=== PATIENT | female | born 1980 | race Caucasian/White ===

== ENCOUNTER 2016-08-13 07:54 | Emergency (ER) | payer OTHER | END 2016-08-13 09:29 | disposition home or self-care (01) | LOC: ER 07:54 | DX: J06.9 Acute upper respiratory infection, unspecified (principal); Z20.828 Contact with and (suspected) exposure to other viral communicable diseases; Z88.0 Allergy status to penicillin | CPT/HCPCS: 87070; 87400; 87880; 99283 ==